=== PATIENT | female | born 1985 | race Caucasian/White ===

== ENCOUNTER 2016-12-15 14:17 | Outpatient (CLI) | payer BC ==
[~2016-12-15 14:17] MED LIST: PREN1TAB60
== END 2016-12-15 15:40 | disposition home or self-care (01) ==
LOC: LDOP 14:17
PROVIDERS: ATTEND Obstetrics & Gynecology
DX: O46.93 Antepartum hemorrhage, unspecified, third trimester (principal); Z3A.39 39 weeks gestation of pregnancy
CPT/HCPCS: 59025; 99211; G0463

== ENCOUNTER 2016-12-16 00:22 | Inpatient (IN) | payer BC ==
[~2016-12-16] VITALS: Ht 162.6 cm; Wt 73.6 kg
[2016-12-16 00:50] VITALS: BP 115/72
[2016-12-16] MEDS ORDERED: OXYTOCIN 30U/ 0.9% NaCL 500ML 500 ML IV ONE (01:47)
[2016-12-16] MEDS ORDERED: D5%-LACTATED RINGERS 1,000 ML IV SCH (01:47)
[2016-12-16] MEDS ORDERED: AMPICILLIN 2 GM in SODIUM CHLORIDE 0.9% 100 ML IVPB STA (01:47)
[2016-12-16] MEDS ORDERED: ONDANSETRON 2MG/ML, 2ML IVPush PRN ×2 (02:00→03:30)
[2016-12-16] MEDS ORDERED: SODIUM CITRATE/CITRIC ACID 30 ML UDC PO PRN (02:00)
[2016-12-16] MEDS ORDERED: FENTANYL PF 100 MCG/2ML IVPush PRN (02:00)
[2016-12-16] MEDS ORDERED: TERBUTALINE 1 MG/ML, 1ML IVPush PRN (02:00)
[2016-12-16] MEDS ORDERED: METOCLOPRAMIDE 5 MG/ML, 2ML IVPush PRN (02:00)
[2016-12-16] MEDS ORDERED: FENTANYL PF 100 MCG/2ML IV PRN (02:00)
[2016-12-16] MEDS ORDERED: CALCIUM CARBONATE 500 MG TAB.CHEW PO PRN (02:00)
[2016-12-16] MEDS ORDERED: NEWBORN KIT ONE (02:09)
[2016-12-16] MEDS: LACTATED RINGERS 1,000 ML IV SCH ×4 (02:12→11:13)
[2016-12-16] MEDS ORDERED: AMPICILLIN 2 GM in SODIUM CHLORIDE 0.9% 50 ML IVPB STA (02:26)
[2016-12-16 02:37] LABS: HEMATOCRIT 37.1 % (34.6-47.8); HEMOGLOBIN 12.6 g/dL (11.7-16.4); WHITE BLOOD COUNT 9.8 x10^3/uL (3.4-10)
[2016-12-16] MEDS ORDERED: FENTANYL PF 100 MCG/2ML ONE (02:46)
[2016-12-16] MEDS ORDERED: BUPIVACAINE 0.25% ONE (02:46)
[2016-12-16] MEDS ORDERED: FENTANYL/BUPIV./NS/PF 250 ML EPIDCONT ONE (02:47)
[2016-12-16] MEDS ORDERED: FENTANYL/BUPIV./NS/PF 250 ML EPIDCONT SCH (03:13)
[2016-12-16] MEDS ORDERED: LACTATED RINGERS 1,000 ML IVBOLUS PRN (03:30)
[2016-12-16] MEDS ORDERED: EPHEDRINE 50 MG/ML, 1ML IVPush PRN (03:30)
[2016-12-16] MEDS ORDERED: AMPICILLIN 1 GM in SODIUM CHLORIDE 0.9% 50 ML IV SCH (06:00)
[2016-12-16] MEDS ORDERED: MISOPROSTOL 200 MCG TABLET ONE (07:40)
[2016-12-16] MEDS ORDERED: OXYTOCIN 30U/ 0.9% NaCL 500ML 500 ML ONE ×2 (07:40→09:21)
[2016-12-16] MEDS ORDERED: LIDOCAINE 1%, 20ML ONE (07:55)
[2016-12-16] MEDS ORDERED: BISACODYL 10 MG SUPP PR PRN (08:30)
[2016-12-16] MEDS ORDERED: OXYcodone/APAP 5/325MG TABLET PO PRN ×2 (08:30)
[2016-12-16] MEDS ORDERED: OXYcodone IR 5MG TABLET PO PRN (08:30)
[2016-12-16] MEDS ORDERED: METOCLOPRAMIDE 5 MG/ML, 2ML IV PRN (08:30)
[2016-12-16] MEDS ORDERED: CARBOPROST TROMETHAMINE 250 MCG/ML, 1ML IM PRN (08:30)
[2016-12-16] MEDS ORDERED: ONDANSETRON 2MG/ML, 2ML IV PRN (08:30)
[2016-12-16] MEDS ORDERED: METHYLERGONOVINE 0.2 MG/ML IM PRN (08:30)
[2016-12-16] MEDS ORDERED: ACETAMINOPHEN 325 MG TABLET PO PRN (08:30)
[2016-12-16] MEDS ORDERED: MISOPROSTOL 200 MCG TABLET PR PRN (08:30)
[2016-12-16] MEDS ORDERED: GLYCERIN ADULT SUPP PR PRN (08:30)
[2016-12-16] MEDS: PRENATAL VIT/IRON/FA 1 EACH TABLET PO SCH (09:00)
[2016-12-16] MEDS: OXYTOCIN 30U/ 0.9% NaCL 500ML 500 ML IV SCH ×2 (10:00→18:29)
[2016-12-16 10:43] VITALS: BP 113/64
[2016-12-16 15:57] VITALS: BP 111/62
[2016-12-16 16:08] LABS: HEMATOCRIT 35.3 % (34.6-47.8); HEMOGLOBIN 11.9 g/dL (11.7-16.4); WHITE BLOOD COUNT 11.1 x10^3/uL (3.4-10)
[2016-12-16] MEDS: IBUPROFEN 600 MG TABLET PO PRN ×2 (16:56→22:57)
[2016-12-16 19:20] VITALS: BP 103/61
[2016-12-17 00:10] VITALS: BP 105/59
[2016-12-17] MEDS: IBUPROFEN 600 MG TABLET PO PRN ×3 (04:55→20:45)
[2016-12-17 05:00] VITALS: BP 115/78
[2016-12-17 09:20] VITALS: BP 117/72
[2016-12-17] MEDS: DOCUSATE 100 MG CAPSULE PO PRN ×2 (09:20→20:45)
[2016-12-17] MEDS: PRENATAL VIT/IRON/FA 1 EACH TABLET PO SCH (09:20)
[2016-12-17 20:50] VITALS: BP 104/60
[2016-12-18] MEDS: IBUPROFEN 600 MG TABLET PO PRN ×2 (03:56→10:05)
[2016-12-18 07:30] VITALS: BP 108/65
[2016-12-18] MEDS: PRENATAL VIT/IRON/FA 1 EACH TABLET PO SCH (09:00)
[2016-12-18] MEDS ORDERED: IBUP-1222 PO (09:21)
[2016-12-18] MEDS ORDERED: OXYC-302 PO (09:22)
[2016-12-18] MEDS ORDERED: DOCU-131 PO (09:23)
[2016-12-18] MEDS: DOCUSATE 100 MG CAPSULE PO PRN (10:05)
== END 2016-12-18 11:00 | disposition home or self-care (01) | DRG 775 ==
LOC: LDOP 00:22 → LDIP 01:41 → 2NW 10:20
PROVIDERS: ADMIT Obstetrics & Gynecology; ATTEND Obstetrics & Gynecology
PROC: 0KQM0ZZ Repair Perineum Muscle, Open Approach (ICD-10-PCS; principal; 2016-12-16)
PROC: 10E0XZZ Delivery of Products of Conception, External Approach (ICD-10-PCS; 2016-12-16)
PROC: 10907ZC Drainage of Amniotic Fluid, Therapeutic from Products of Conception, Via Natural or Artificial Opening (ICD-10-PCS; 2016-12-16)
PROC: 3E0R3BZ Introduction of Anesthetic Agent into Spinal Canal, Percutaneous Approach (ICD-10-PCS; 2016-12-16)
PROC: 00HU33Z Insertion of Infusion Device into Spinal Canal, Percutaneous Approach (ICD-10-PCS; 2016-12-16)
DX: O99.824 Streptococcus B carrier state complicating childbirth (principal); O77.0 Labor and delivery complicated by meconium in amniotic fluid; O70.1 Second degree perineal laceration during delivery; Z37.0 Single live birth; Z3A.39 39 weeks gestation of pregnancy
CPT/HCPCS: 36415; 85025; 86850; 86900; J0290; J3490; J2590; J3010; J7120